=== PATIENT | male | born 1990 | race Caucasian/White ===

== ENCOUNTER 2021-03-13 09:56 | Outpatient (CLI) | payer BC, SELFPAY ==
--- NOTE | 2021-03-13 12:00 | NEURO_ITS ---
Impression: # Complains of left hand numbness. # Left ulnar neuropathy across the elbow. # Mild evolving left Carpal Tunnel Syndrome. # Normal needle/EMG exam. Nerve Conduction Studies Anti Sensory Summary Table Stim Site NR Peak (ms) P-T Amp (?V) Site1 Site2 Delta-P (ms) Dist (cm) Alonzo (m/s) Left Median Anti Sensory (2-3nd Digit) Wrist 3.0 79.0 Wrist 2-3nd Digit 3.0 14.0 47 Wrist 3.2 43.3 Wrist 2-3nd Digit 3.0 14.0 47 Left Radial Anti Sensory (Base 1st Digit) Wrist 1.8 32.4 Wrist Base 1st Digit 1.8 0.0 Left Ulnar Anti Sensory (5th Digit) Wrist 3.0 10.8 Wrist 5th Digit 3.0 14.0 47 Motor Summary Table Stim Site NR Onset (ms) O-P Amp (mV) Site1 Site2 Delta-0 (ms) Dist (cm) Alonzo (m/s) Left Median Motor (Abd Poll Brev) Wrist 4.0 2.2 Elbow Wrist 5.1 33.0 65 Elbow 9.1 2.9 Left Ulnar Motor (Abd Dig Minimi) Wrist 2.7 7.7 A Elbow Wrist 6.1 31.0 51 A Elbow 8.8 5.4 B Elbow Wrist 4.0 25.0 63 B Elbow 6.7 5.4 F Wave Studies NR F-Lat (ms) L-R F-Lat (ms) Left Median (Mrkrs) (Abd Poll Brev) 29.93 Left Ulnar (Mrkrs) (Abd Dig Min) 29.22 EMG Side Muscle Nerve Root Ins Act Fibs Amp Dur Recrt Comment Left 1stDorInt Ulnar C8-T1 Nml Nml Nml Nml Nml Left Ext Indicis Radial (Post Int) C7-8 Nml Nml Nml Nml Nml Left Ext Digitorum Radial (Post Int) C7-8 Nml Nml Nml Nml Nml Left BrachioRad Radial C5-6 Nml Nml Nml Nml Nml Left PronatorTeres Median C6-7 Nml Nml Nml Nml Nml Left Abd Poll Brev Median C8-T1 Nml Nml Nml Nml Nml Left ABD Dig Min Ulnar C8-T1 Nml Nml Nml Nml Nml MTDD
== END 2021-03-13 09:57 | disposition home or self-care (01) ==
PROVIDERS: Visit Provider Physician Assistant Surgical
DX: G56.22 Lesion of ulnar nerve, left upper limb (principal); G56.02 Carpal tunnel syndrome, left upper limb
CPT/HCPCS: 95886; 95909

== ENCOUNTER 2021-10-13 23:17 | Emergency (ER) | payer BC, SELFPAY ==
[2021-10-13 23:27] VITALS: BP 176/100; PULSE 107; RESP 20; TEMP 36.3; O2SAT 97
--- NOTE | 2021-10-13 23:32 | ED_ITS ---
HPI - General Adult General Chief complaint: Skin/Abscess/Foreign Body Stated complaint: food stuck in esophagus Time Seen by Provider: 10/13/21 23:31 Source: patient Mode of arrival: ambulatory Limitations: no limitations History of Present Illness HPI narrative: 30 years old white male presented to the ED with food bolus stuck in the esophagus 1 hour prior to arrival to the emergency room. Patient was eating chicken. Patient unable to keep fluids down, keep spitting his saliva. Patient had similar symptom when he was 19 years old, did not require EGD at that time. History of hypertension, does not smoke, drinks occasionally no drugs Related Data Allergies Allergy/AdvReac Type Severity Reaction Status Date / Time pollen extracts Allergy Unknown Verified 11/11/10 15:48 Course Reevaluation(s) Reevaluation #1: Patient received 1 mg of glucagon IV, within 30 minutes patient was able to keep fluids and food down. Patient believes that the food bolus went down to his stomach. Patient feeling great and ready to go home Date: 10/14/21 Time: 01:17 Vital Signs Vital signs: Vital Signs Temperature 36.3 C L 10/13/21 23:27 Pulse Rate 107 H 10/13/21 23:27 Respiratory Rate 20 10/13/21 23:27 Blood Pressure 176/100 H 10/13/21 23:27 Pulse Oximetry 97 10/13/21 23:27 Temperature 36.3 C L 10/13/21 23:27 Pulse Rate 85 10/14/21 00:47 Respiratory Rate 14 10/14/21 00:47 Blood Pressure 176/100 H 10/13/21 23:27 Pulse Oximetry 99 10/14/21 00:47 Medical Decision Making [facility] Narrative Medical decision making narrative: Food bolus or esophageal obstruction, resolved Vital Signs Vital Signs: Vital Signs Temperature 36.3 C L 10/13/21 23:27 Pulse Rate 107 H 10/13/21 23:27 Respiratory Rate 20 10/13/21 23:27 Blood Pressure 176/100 H 10/13/21 23:27 Pulse Oximetry 97 10/13/21 23:27 Temperature 36.3 C L 10/13/21 23:27 Pulse Rate 85 10/14/21 00:47 Respiratory Rate 14 10/14/21 00:47 Blood Pressure 176/100 H 10/13/21 23:27 Pulse Oximetry 99 10/14/21 00:47 Critical Care Time Critical Care Time Critical Care Time: Yes Total Critical Care Time: 30 Discharge Plan Discharge Clinical Impression: Esophageal obstruction due to food impaction Patient Disposition: Home, Self-Care Condition: Improved Instructions: Antibiotic Form, Esophageal Foreign Body (ED) Additional Instructions: Return if symptoms are worsening , call Dr. Boles for appointment, take Tylenol as as needed for aches and pain, continue home medications. Chew your food well Follow-up/Referrals: PHYSICIAN NOT ON STAFF,NONSTAFF [Non-Staff] -
[2021-10-13] MEDS: GLUCAGON FOR INJ 1 MG VIAL IM (23:58)
[2021-10-14 00:47] VITALS: PULSE 85; RESP 14; O2SAT 99
--- NOTE | 2021-10-14 01:14 | PC.NURSE ---
Called Ramana Rider at [phone] on cell.
== END 2021-10-14 00:45 | disposition home or self-care (01) ==
PROVIDERS: Emergency Provider Emergency Medicine; PCP Nurse Practitioner Family
DX: T18.128A Food in esophagus causing other injury, initial encounter (principal)
CPT/HCPCS: 96372; 99283; J1610